=== PATIENT | male | born 1990 | race African-American/Black ===

== ENCOUNTER 2018-03-30 08:30 | Emergency (ER) | payer OTHER ==
--- NOTE | 2018-03-30 08:49 | ED Physician Documentation ---
PD HPI LOWER EXT INJURY - Stated complaint Stated Complaint: LFT KNEE INJURY - Chief complaint Chief Complaint: Ext Problem - History obtained from History obtained from: Patient - History of Present Illness PD HPI LOW EXT INJURY LOCATION: Left, Knee Type of injury: Twist Where injury occurred: Home Timing - onset: Today Worsened by: Moving Associated symptoms: No: Weakness, Numbness, Swelling Similar symptoms before: Has not had sx before - Additional information Additional information: The patient is a 27-year-old active [employer] [place] male who presents with left knee pain. He was doing jumping squats in his garage at home this morning when his left knee popped. He has had pain in the knee, particularly with weightbearing, since then. He denies history of similar symptoms in the past. Review of Systems Constitutional: denies: Fever Respiratory: denies: Dyspnea, Cough GI: denies: Nausea, Vomiting Skin: denies: Rash Musculoskeletal: reports: Joint pain (left knee). denies: Back pain, Extremity swelling Neurologic: denies: Focal weakness, Numbness PD PAST MEDICAL HISTORY - Past Medical History Endocrine/Autoimmune: None - Present Medications Home Medications: Ambulatory Orders Medication Instructions Recorded Confirmed Ibuprofen 800 mg PO TID PRN #30 tablet 03/30/18 - Allergies Allergies/Adverse Reactions: Allergies Allergy/AdvReac Type Severity Reaction Status Date / Time No Known Drug Allergies Allergy Verified 03/30/18 08:40 PD ED PE NORMAL - Vitals Vital signs reviewed: Yes (Borderline hypertension initially.) - General General: Alert and oriented X 3, Well developed/nourished - HEENT HEENT: Atraumatic - Respiratory Respiratory: No respiratory distress - Derm Derm: No rash - Extremities Extremities: No edema, No calf tenderness / cord, Other (There is mild tenderness to palpation at the medial aspect of the left knee. There is no effusion or erythema. No tenderness to palpation in the popliteal fossa or the lateral joint line. There is no ligamentous instability detected. There is full ROM of the knee. Distal neurovascular is intact.) - Neuro Neuro: Alert and oriented X 3, No motor deficit, No sensory deficit Results - Vitals Vitals: Vital Signs - 24 hr 03/30/18 03/30/18 08:38 10:06 Temperature 36.6 C Heart Rate 74 59 L Respiratory 18 16 Rate Blood Pressure 142/83 H 133/89 H O2 Saturation 97 100 Oxygen O2 Source Room air - Rads (name of study) left knee Radiology: Prelim report reviewed, EMP read contemporaneously, See rad report (No osseous abnormalities.) Procedures - Splint (location) left knee Splint applied by: Tech Type of splint: Other (Knee immobilizer) Other: Patient tolerated well, No complications PD MEDICAL DECISION MAKING - ED course Complexity details: reviewed results, re-evaluated patient, considered differential, d/w patient ED course: The patient's presentation is most consistent with strain, or possible meniscus injury of the left knee. There is no appreciable joint effusion, and x-ray of the knee reveals no osseous abnormality. Treatment in the emergency department included application of a knee immobilizer. 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 Departure - Departure Disposition: 01 Home, Self Care Clinical Impression: Sprain of left knee Qualifiers: Encounter type: initial encounter Involved ligament of knee: unspecified ligament Qualified Code(s): S83.92XA - Sprain of unspecified site of left knee, initial encounter Condition: Stable Instructions: ED Sprain Knee Follow-Up: LEANNE Aguilar [Provider Group] Prescriptions: Ibuprofen 800 mg PO TID PRN #30 tablet PRN Reason: Pain Comments: Use the knee immobilizer if it provides comfort. You can apply ice pack to your knee intermittently for the next 3 days. Use ibuprofen, up to 800 mg 3 times daily if needed for pain or discomfort. Follow-up with your primary physician within 1-2 weeks. Call to schedule appointment. Return to the emergency department if increasing pain or swelling of your knee, or otherwise worsening symptoms. Discharge Date/Time: 03/30/18 10:06
--- NOTE | 2018-03-30 09:31 | XRAY Report ---
Reason: left knee injury Procedure Date: 03/30/2018 Accession Number: [id number] / [id number] Procedure: XR - Knee 3 View LT CPT Code: FULL RESULT: EXAM: LEFT KNEE RADIOGRAPHY EXAM DATE: 03/30/2018 09:22 AM. CLINICAL HISTORY: Left knee injury after deep squat in exercise. COMPARISON: None. TECHNIQUE: 3 views. FINDINGS: Bones: No acute fracture or bony lesion. Patellar enthesophyte. Joints: Normal alignment. No joint space narrowing. No knee effusion. No dislocation. Soft Tissues: Normal. No soft tissue swelling. IMPRESSION: 1. No osseous abnormalities. [facility]
[2018-03-30 10:06] VITALS: BP 133/89
== END 2018-03-30 10:06 | disposition home or self-care (01) ==
LOC: ED 08:30
DX: S83.92XA Sprain of unspecified site of left knee, initial encounter (principal); X50.3XXA Overexertion from repetitive movements, initial encounter; Y93.B9 Activity, other involving muscle strengthening exercises; Y92.008 Other place in unspecified non-institutional (private) residence as the place of occurrence of the external cause; Y99.8 Other external cause status
CPT/HCPCS: 29505; 99283

== ENCOUNTER 2018-05-04 12:23 | Outpatient (CLI) | payer OTHER ==
--- NOTE | 2018-05-04 15:15 | MRI Report ---
Reason: PAIN IN UNSPECIFIED KNEE Procedure Date: 05/04/2018 Accession Number: [id number] / [id number] Procedure: MRI - Knee LT W/O CPT Code: FULL RESULT: EXAM: LEFT KNEE MRI WITHOUT CONTRAST EXAM DATE: 05/04/2018 12:31 PM. CLINICAL HISTORY: Left knee pain after doing box jumps. COMPARISON: Radiographs of the left knee 03/30/2018. TECHNIQUE: Multiplanar, multisequence T1-weighted and fluid-sensitive sequences of the knee without contrast. Other: None. FINDINGS: Bones: Enthesophyte at the anterosuperior aspect of the patella. No fractures or subluxations. No marrow edema. No bone lesions. Articular Cartilage: Unremarkable. Medial Meniscus: Bucket-handle tear of the medial meniscus. Lateral Meniscus: The lateral meniscus is intact. Cruciate Ligaments: The anterior and posterior cruciate ligaments are intact. Collateral Ligaments: The medial collateral and lateral collateral ligamentous structures are intact. Tendons: The quadriceps, patellar, semimembranosus, and popliteus tendons are unremarkable. Musculature: No edema or fatty atrophy. Other: Small joint effusion. Small popliteal cyst which is partially ruptured. No loose bodies. The medial and lateral retinacula are intact. The subcutaneous tissues and fat pads are unremarkable. IMPRESSION: 1. Bucket-handle tear of the medial meniscus. 2. Small joint effusion. 3. Small, partially ruptured popliteal cyst. [facility] MUSCULOSKELETAL RADIOLOGY SECTION
== END 2018-05-04 12:24 | disposition home or self-care (01) ==
LOC: DI 12:23
PROVIDERS: ATTEND General Practice
DX: S83.212A Bucket-handle tear of medial meniscus, current injury, left knee, initial encounter (principal); M25.462 Effusion, left knee; S86.812A Strain of other muscle(s) and tendon(s) at lower leg level, left leg, initial encounter

== ENCOUNTER 2018-06-15 07:11 | Day surgery (SDC) | payer OTHER ==
[2018-06-15] MEDS ORDERED: LACTATED RINGERS 1,000 ML IV ONE ×2 (07:56→12:43)
--- NOTE | 2018-06-15 09:53 | ANESTHESIA ---
Pre-Anesthesia VS, & Labs - Diagnosis left knee meniscus tear - Procedure Left knee arthroscopy, meniscus debridement Vital Signs: Temp Pulse Resp BP Pulse Ox 36.4 C L 66 19 128/81 H 98 06/15/18 07:30 06/15/18 07:30 06/15/18 07:30 06/15/18 07:30 06/15/18 07:30 Height 5 ft 11 in Weight (kg) 108.86 kg Body Mass Index 29.5 - NPO >8 hours Home Medications and Allergies Home Medications: Ambulatory Orders No Known Home Medications 06/13/18 No Known Home Medications 06/13/18 Allergies/Adverse Reactions: Allergies Allergy/AdvReac Type Severity Reaction Status Date / Time No Known Drug Allergies Allergy Verified 06/13/18 13:36 Anes History & Medical History - Anesthetic History Anesthesia Complications: reports: No previous complications - Medical History Cardiovascular: reports: None Pulmonary: reports: None Gastrointestinal: reports: None Urinary: reports: None Musculoskeletal: reports: Other Endocrine/Autoimmune: reports: None Skin: reports: None Smoking Status: Never smoker Exam General: Alert Dental: WNL Mouth Opening: Greater than 4 Fingerbreadths Neck Mobility: Normal Mallampati classification: I Thyromental Distance: greater than 6 cm Respiratory: Lungs clear Cardiovascular: Regular rate, Normal S1, Normal S2 Mental/Cognitive Status: Alert/Oriented X3 Plan Anesthesia Type: General Consent for Procedure(s) Verified and Reviewed: Yes Code Status: Attempt Resuscitation ASA classification: 1-Healthy patient Is this case an emergency?: No
[2018-06-15] MEDS ORDERED: cefTRIAXone 2 GM VIAL ONE (10:48)
[2018-06-15] MEDS ORDERED: ceFAZolin 2 GM/50 ML 2 GM/50 ML BAG IV ONE ×2 (10:49→12:30)
[2018-06-15] MEDS ORDERED: EPINEPHrine 1 MG/ML AMP ONE (10:58)
[2018-06-15] MEDS ORDERED: BUPIVACAINE 0.25% PF 10 ML VIAL ONE (10:59)
[2018-06-15] MEDS ORDERED: BUPIVACAINE 0.25% PF 10 ML VIAL SUBQ ONE ×2 (11:38→12:55)
[2018-06-15] MEDS ORDERED: ONDANSETRON 4 MG/2 ML VIAL IVP ONE (12:30)
[2018-06-15] MEDS ORDERED: PROPOFOL 200 MG/20 ML VIAL IVP ONE (12:30)
[2018-06-15] MEDS ORDERED: fentaNYL 250 MCG/5 ML VIAL IVP ONE (12:30)
[2018-06-15] MEDS ORDERED: KETOROLAC 30 MG/ML VIAL IVP ONE (12:30)
[2018-06-15] MEDS ORDERED: DEXAMETHASONE 4 MG/ML VIAL IVP ONE (12:30)
[2018-06-15] MEDS ORDERED: MIDAZOLAM 2 MG/2 ML VIAL IVP ONE (12:30)
[2018-06-15] MEDS ORDERED: ACETAMINOPHEN 1,000 MG/100 ML 100 ML IV ONE (12:30)
[2018-06-15] MEDS ORDERED: fentaNYL 100 MCG/2 ML VIAL IVP ONE (12:30)
[2018-06-15] MEDS ORDERED: ONDANSETRON 4 MG/2 ML VIAL IVP PRN (13:23)
[2018-06-15] MEDS ORDERED: oxyCODONE 5 MG TABLET PO PRN (13:23)
--- NOTE | 2018-06-15 13:27 | OPERATIVE REPORT ---
Operative Report - General Procedure Date: 06/15/18 Planned Procedure: Left knee arthroscopy meniscal debridement versus repair Pre-Op Diagnosis: Left knee medial meniscus bucket-handle tear Procedure Performed: Left knee arthroscopy medial meniscal debridement Post Op Diagnosis: Left knee medial meniscus bucket-handle tear - Procedure Note Primary Surgeon: POLY DO Anesthesia Technique: General LMA Estimated Blood Loss (mL): 5 - Other Other Information/Narrative: Indications for surgery: 28-year-old male with a history of left knee injury while doing box steps and squats after landing awkwardly and twisting the knee in Mar 2018. He was unable to walk and an MRI demonstrated a bucket-handle tear of the medial meniscus. On initial evaluation in May 2018 he reports that he was bearing weight, but that he had intermittent near every other day episodes of increased pain and swelling. He had failed nonoperative management. The risks, benefits, and alternatives were discussed. Risks included pain, bleeding, infection, damage to nearby structures, lack of symptom relief, implant complications, stiffness, need for further surgeries, DVT, PE, stroke, and even . He signed a written consent form. Left knee: 1. Patella: Small focal lesion medial patellar facet 2. Trochlea: Normal 3. Medial Compartment: Bucket-handle tear of the medial meniscus from the root to the junction of the anterior third and body, tear displaced into the notch. Femoral and tibial cartilage normal 4. Lateral Compartment: Lateral meniscal root intact no meniscal tear, some leading edge fraying. Femoral and tibial cartilage normal 5. ACL and PCL: Intact COMPLICATIONS: none IMPLANTS: None Tourniquet: approximately 80 minutes, 250 mmHg, left thigh Procedure Details: The patient was met in the pre-operative hold area. We reviewed risks, benefits, and alternatives to surgery. Consent was signed. The patient verified the surgical site as the left knee. The patient then met with anesthesia and was brought back to the operating room. The patient was placed supine on the operating table. A general anesthetic was administered and LMA was placed. A well-padded tourniquet was placed on the left thigh. The left lower extremity was then prepped and draped in the usual sterile fashion. A surgical timeout was then performed. The correct patient, the correct procedure, and the correct surgical site were confirmed by everyone in the room. Perioperative antibiotics had been administered. After surgical timeout and administration of antibiotics the [facility] was used to exsanguinate the left lower extremity and the tourniquet was raised. An 11 blade scalpel was used to make an anteromedial and anterolateral arthroscopic portal. The arthroscope was introduced into the knee and a diagnostic arthroscopy was performed with the above-stated findings. Meniscal Debridement: The arthroscopic biter and sucker shaver were used to debride the torn meniscal tissue and debride the meniscus back to a stable rim. The arthroscopic probe was used to ensure that the remaining meniscal tissue was stable. The arthroscopic instruments were then removed from the knee. The portals were closed with 3-0 Monocryl. 0.25% Marcaine was injected into the periarticular soft tissues. The incisions were dressed with Xeroform gauze, 4x4 gauze, an ABD and AFSHIN stocking. The tourniquet was lowered. The surgical drapes were removed. The patient was awoken from anesthesia, extubated, transferred to the hospital bed, and taken to the PACU for recovery in good condition. Postoperative plan: 1. Discharge home from the same day surgery facility once the patient has met discharge criteria. 2. Advance weightbearing as tolerated, range of motion as tolerated, and wean from crutches as tolerated as gait normalizes. 3. Return to clinic in 5-7 days for wound check. Will start formal PT at that time. 4. Allow advancement of activities as tolerated with full clearance for all activities anticipated in 6-8 weeks postoperatively.
[2018-06-15] MEDS ORDERED: HYDROmorphone 0.5 MG/0.5 ML SYRINGE ONE (13:34)
[2018-06-15 15:03] VITALS: BP 134/84
== END 2018-06-15 07:12 | disposition home or self-care (01) ==
LOC: SDS 07:11
PROVIDERS: ATTEND Orthopaedic Surgery
PROC: 0SBC4ZZ Excision of Right Knee Joint, Percutaneous Endoscopic Approach (ICD-10-PCS; principal; 2018-06-15 09:00)
DX: M23.203 Derangement of unspecified medial meniscus due to old tear or injury, right knee (principal); Z87.891 Personal history of nicotine dependence
CPT/HCPCS: 29881; A9270; J0131; J0690; J1170; J3010; J7120

== ENCOUNTER 2020-10-20 08:00 | Outpatient (CLI) | payer OTHER | END 2020-10-20 23:59 | disposition home or self-care (01) | LOC: LAB.N 08:00 | PROVIDERS: ATTEND Family Medicine | DX: R50.9 Fever, unspecified (principal); Z20.822 Contact with and (suspected) exposure to COVID-19 ==

== ENCOUNTER 2023-02-08 16:15 | Outpatient (CLI) | payer OTHER ==
[2023-02-08 20:56] LABS: CALCIUM 9.7 mg/dL (8.5-10.3); CREATININE 0.7 mg/dL (0.6-1.3); POTASSIUM 3.9 mmol/L (3.5-4.5)
== END 2023-02-08 16:30 | disposition home or self-care (01) ==
LOC: LAB.N 16:15
PROVIDERS: ATTEND Family Medicine
DX: M79.672 Pain in left foot (principal)
CPT/HCPCS: 36415; 80048; 84550; 85651

== ENCOUNTER 2023-02-10 07:24 | Outpatient (CLI) | payer OTHER ==
--- NOTE | 2023-02-10 11:40 | XRAY Report ---
PROCEDURE: Foot 3 View LT INDICATIONS: LEFT FOOT PAIN TECHNIQUE: 3 views of the foot were acquired. COMPARISON: None. FINDINGS: Bones: No fractures or dislocations. Normal alignment on nonweightbearing view. Joint spaces are ma intained. No suspicious bony lesions. Soft tissues: No suspicious soft tissue calcifications or masses. No soft tissue swelling or radiopa que foreign body. IMPRESSION: No acute bony abnormality. Reviewed by: Gina Thao MD on 02/10/2023 11:39 AM PDT Approved by: Gina Thao MD on 02/10/2023 11:39 AM PDT Station ID: [id number]
== END 2023-02-10 07:25 | disposition home or self-care (01) ==
LOC: DI 07:24
PROVIDERS: ATTEND Family Medicine
DX: M79.672 Pain in left foot (principal)